=== PATIENT | female | born 1990 | race African-American/Black ===

== ENCOUNTER 2023-06-28 00:04 | Emergency (ER) | payer MEDICAID ==
[~2023-06-28] VITALS: Ht 165.1 cm; Wt 55.0 kg
[2023-06-28 00:37] VITALS: BP 130/80; PULSE 62; RESP 18; TEMP 97.6; O2SAT 99
== END 2023-06-28 01:16 | disposition home or self-care (01) ==
LOC: ER 00:04
DX: Z13.30 Encounter for screening examination for mental health and behavioral disorders, unspecified (principal)
CPT/HCPCS: 99283